=== PATIENT | female | born 1930 ===

== ENCOUNTER 2017-10-07 13:02 | Emergency (ER) | payer OTHER ==
[~2017-10-07] VITALS: Ht 157.5 cm; Wt 74.8 kg
[2017-10-07] MEDS ORDERED: METFORMIN HCL1000 MG (13:20)
[2017-10-07] MEDS ORDERED: ZOCOR5 MG (13:21)
[2017-10-07] MEDS ORDERED: GLUCOPHAGE XR500 MG (13:21)
[2017-10-07] MEDS ORDERED: NORVASC10 MG (13:21)
[2017-10-07] MEDS ORDERED: SYNTHROID50 MCG (13:22)
[2017-10-07] MEDS ORDERED: ISOSORBIDE DINI30 MG (13:22)
== END 2017-10-07 15:51 | disposition home or self-care (01) ==
LOC: ER 13:02
DX: S42.291A Other displaced fracture of upper end of right humerus, initial encounter for closed fracture (principal); S00.03XA Contusion of scalp, initial encounter; W18.09XA Striking against other object with subsequent fall, initial encounter; Y93.89 Activity, other specified; Y92.018 Other place in single-family (private) house as the place of occurrence of the external cause; Y99.8 Other external cause status